=== PATIENT | male | born 1995 | race African-American/Black ===

== ENCOUNTER 2017-10-31 08:10 | Emergency (ER) | payer OTHER ==
[~2017-10-31] VITALS: Ht 190.5 cm; Wt 129.3 kg
[2017-10-31 08:14] VITALS: BP 135/71; Ht 190.5 cm; Wt 129.3 kg
== END 2017-10-31 10:47 | disposition home or self-care (01) ==
LOC: ED 08:10
DX: R10.9 Unspecified abdominal pain (principal); R11.10 Vomiting, unspecified
CPT/HCPCS: J0780; J1885

== ENCOUNTER 2018-12-07 09:44 | Emergency (ER) | payer BC ==
[~2018-12-07] VITALS: Ht 190.5 cm; Wt 153.8 kg
[2018-12-07 10:01] VITALS: BP 124/61; Ht 190.5 cm; Wt 153.8 kg
== END 2018-12-07 14:03 | disposition home or self-care (01) ==
LOC: ED 09:44
DX: S29.012A Strain of muscle and tendon of back wall of thorax, initial encounter (principal); S39.012A Strain of muscle, fascia and tendon of lower back, initial encounter; E66.01 Morbid (severe) obesity due to excess calories; Z68.41 Body mass index [BMI] 40.0-44.9, adult; X58.XXXA Exposure to other specified factors, initial encounter; Y93.89 Activity, other specified; Y92.89 Other specified places as the place of occurrence of the external cause; Y99.8 Other external cause status
CPT/HCPCS: J1100; J1885